=== PATIENT | female | born 1995 | race Caucasian/White ===

== ENCOUNTER 2022-08-15 00:49 | Emergency (ER) | payer OTHER ==
[~2022-08-15] VITALS: Ht 147.3 cm; Wt 45.4 kg
[2022-08-15] MEDS ORDERED: Tessalon200 MG PO (01:16)
[2022-08-15] MEDS ORDERED: ALBU90OI INH (01:16)
[2022-08-15] MEDS ORDERED: AZIT250 PO (01:17)
== END 2022-08-15 02:04 | disposition left against medical advice (07) ==
LOC: ER 00:49
DX: J06.9 Acute upper respiratory infection, unspecified (principal); Z79.899 Other long term (current) drug therapy; Z53.29 Procedure and treatment not carried out because of patient's decision for other reasons
CPT/HCPCS: 99282

== ENCOUNTER → 2024-02-07 | Outpatient (CLI) | payer OTHER ==
[~2024-02-07] MED LIST: ALBU90OI INH; AZIT250 PO; Tessalon200 MG PO
[2024-02-07 12:37] LABS: Source, Urine Clean Catch
[2024-02-07 13:26] LABS: Appearance, Urine Hazy (Clear); Bilirubin, Urine Neg (Neg); Blood, Urine 1+ (Neg); Color, Urine Yellow (P-Yellow); Glucose Qualitative, Urine 3+ (Neg); Ketones, Urine Neg (Neg); Leukocyte Esterase, Urine Neg (Neg); Nitrite, Urine Neg (Neg); Protein, Urine 1+ (Neg); Urobilinogen, Urine NORM (Normal)
[2024-02-07 14:00] LABS: Bacteria Many /hpf; Hyaline Casts 0-2 /lpf (0-2); Mucus Heavy (0-Heavy); Squamous Epithelial Cells Many /hpf (Few); White Blood Cells, Urine 0-2 /hpf (0-5)
[2024-02-07 14:19] LABS: BASOPHILS ABSOLUTE AUTO 0.05 K/mm3 (0.00-0.23); BASOPHILS PERCENT AUTO 1 % (0-2); EOSINOPHILS ABSOLUTE AUTO 0.03 K/mm3 (0.00-0.68); EOSINOPHILS PERCENT AUTO 0 % (0-6); Hematocrit 39.5 % (33.0-51.0); Hemoglobin 13.4 g/dL (11.5-16.0); IMMATURE GRAN ABSOLUTE AUTO 0.04 K/mm3 (0.00-0.10); IMMATURE GRAN PERCENT AUTO 0 % (0-1); LYMPHOCYTES ABSOLUTE AUTO 1.47 K/mm3 (0.84-5.20); LYMPHOCYTES PERCENT AUTO 15 % (21-46); MONOCYTES ABSOLUTE AUTO 0.75 K/mm3 (0.16-1.47); MONOCYTES PERCENT AUTO 8 % (4-13); Mean Corpuscular HGB 30.5 pg (26.0-34.0); Mean Corpuscular HGB Conc 33.9 g/dL (31.5-36.5); Mean Corpuscular Volume 90 fL (80-100); Mean Platelet Volume 10.8 fL (9.1-12.4); NEUTROPHILS ABSOLUTE AUTO 7.38 K/mm3 (1.96-9.15); NEUTROPHILS PERCENT AUTO 76 % (41-73); Platelet Count 304 K/mm3 (150-400); RDW Coefficient Variation 11.9 % (11.7-14.2); RDW Standard Deviation 39.1 fL (35.1-46.3); White Blood Cell Count 9.72 K/mm3 (4.00-11.30)
[2024-02-09 07:18] LABS: HEPATITIS B SURFACE ANTIGEN Negative (Negative)
[2024-02-09 07:29] LABS: HIV 1,2 COMBO ANTIGEN/ANTIBODY Negative (Negative)
[2024-02-09 10:16] LABS: HEPATITIS C AB CIA INTERP Negative (Negative); HEPATITIS C ANTIBODY CIA INDEX 0.08 IV
== END | disposition home or self-care (01) ==
LOC: LAB SHORT 12:34 → LAB 12:34
PROVIDERS: Registered Nurse Community Health
DX: Z34.91 Encounter for supervision of normal pregnancy, unspecified, first trimester (principal)
CPT/HCPCS: 81001; 84443; 86803; 87086; 87340; 87389

== ENCOUNTER → 2024-06-26 | Outpatient (CLI) | payer OTHER ==
[2024-06-26 16:07] LABS: Hematocrit 29.8 % (33.0-51.0)
== END ==
LOC: LAB SHORT 14:58 → LAB 14:58
PROVIDERS: Registered Nurse Community Health
DX: Z34.93 Encounter for supervision of normal pregnancy, unspecified, third trimester (principal)
CPT/HCPCS: 82950; 85014; 85018

== ENCOUNTER 2024-09-10 13:37 | Inpatient (IN) | payer OTHER ==
[~2024-09-10] VITALS: Ht 149.9 cm; Wt 64.0 kg
[2024-09-10] VITALS (26 sets, daily range): BP systolic 121–164; BP diastolic 59–97
[2024-09-10] MEDS ORDERED: PRENATAL 19 TA1 EAC3 PO (14:47)
[2024-09-10] MEDS ORDERED: FERSU300 PO (14:47)
[2024-09-10] MEDS ORDERED: Tranexamic Acid 1,000 MG in NS 100 ML IV SCH (14:50)
[2024-09-10] MEDS ORDERED: Misoprostol 200 MCG Tab BC PRN (14:50)
[2024-09-10] MEDS ORDERED: Acetaminophen 500 MG Tab PO PRN (14:50)
[2024-09-10] MEDS ORDERED: Ondansetron HCl 2 MG / ML 2ML Vial IV PRN (14:50)
[2024-09-10] MEDS ORDERED: Methylergonovine Maleate 0.2MG / ML 1ML Amp IM PRN (14:50)
[2024-09-10] MEDS ORDERED: OXYTOCIN/RINGER'S LACTATE 500 ML IV PRN (14:50)
[2024-09-10] MEDS ORDERED: Calcium Carbonate 500 MG Tab Chew PO SCH (14:50)
[2024-09-10] MEDS ORDERED: Lactated Ringer's 1,000 ML IV PRN (14:50)
[2024-09-10] MEDS ORDERED: Lactated Ringer's 1,000 ML IV SCH ×3 (14:50→23:50)
[2024-09-10] MEDS ORDERED: FentaNYL 2mcg/ml-Bup 0.1% Epd 250 ML EPI PRN (14:50)
[2024-09-10] MEDS ORDERED: Carboprost Tromethamine 250 MCG/ML 1ML Amp IM PRN (14:50)
[2024-09-10] MEDS ORDERED: Oxytocin 10 Unit / ML Vial IM PRN (14:50)
[2024-09-10] MEDS ORDERED: ePHEDrine Sulfate 50 MG/ML 1ML Injection XX PRN (14:50)
[2024-09-10] MEDS ORDERED: Misoprostol 200 MCG Tab PR PRN (14:50)
[2024-09-10 15:03] LABS: BASOPHILS ABSOLUTE AUTO 0.03 K/mm3 (0.00-0.23); BASOPHILS PERCENT AUTO 0 % (0-2); EOSINOPHILS ABSOLUTE AUTO 0.01 K/mm3 (0.00-0.68); EOSINOPHILS PERCENT AUTO 0 % (0-6); Hematocrit 36.4 % (33.0-51.0); Hemoglobin 12.8 g/dL (11.5-16.0); IMMATURE GRAN ABSOLUTE AUTO 0.07 K/mm3 (0.00-0.10); IMMATURE GRAN PERCENT AUTO 1 % (0-1); LYMPHOCYTES PERCENT AUTO 6 % (21-46); MONOCYTES ABSOLUTE AUTO 0.73 K/mm3 (0.16-1.47); MONOCYTES PERCENT AUTO 5 % (4-13); Mean Corpuscular HGB 31.5 pg (26.0-34.0); Mean Corpuscular HGB Conc 35.2 g/dL (31.5-36.5); Mean Corpuscular Volume 90 fL (80-100); Mean Platelet Volume 12.5 fL (9.1-12.4); NEUTROPHILS ABSOLUTE AUTO 13.18 K/mm3 (1.96-9.15); NEUTROPHILS PERCENT AUTO 88 % (41-73); Platelet Count 209 K/mm3 (150-400); RDW Coefficient Variation 12.8 % (11.7-14.2); RDW Standard Deviation 41.9 fL (35.1-46.3); Red Blood Cell Count 4.06 M/mm3 (3.80-5.20); White Blood Cell Count 14.92 K/mm3 (4.00-11.30)
[2024-09-10] MEDS ORDERED: Acetaminophen 325 MG TABLET PO PRN (23:45)
[2024-09-10] MEDS ORDERED: Docusate Sodium 100 MG Cap PO PRN (23:45)
[2024-09-10] MEDS ORDERED: FLU VACC TS2024-25(6MOS UP)/PF 45 MCG/0.5 ML SYRINGE IM ONE (23:45)
[2024-09-10] MEDS ORDERED: Lanolin Cream TOP PRN (23:45)
[2024-09-10] MEDS ORDERED: Witch Hazel/Glycerin PADS TOP PRN (23:45)
[2024-09-10] MEDS ORDERED: Measles/Mumps/Rubella Vaccine 0.5 ML Vial SC ONE (23:45)
[2024-09-10] MEDS ORDERED: Benzocaine/Benzethon Topical Anesthetic Spray 78GM TOP PRN (23:45)
[2024-09-10] MEDS ORDERED: Ketorolac Tromethamine 30mg Vial IV PRN (23:50)
[2024-09-10] MEDS ORDERED: Hydrocortisone/Pramoxine Rectal Foam 10 GM PR PRN (23:50)
[2024-09-10] MEDS ORDERED: Ibuprofen 400 MG Tab PO PRN (23:50)
[2024-09-10] MEDS ORDERED: OxyCODONE 10/Acetamin 325 TABLET PO PRN (23:50)
[2024-09-11] VITALS (14 sets, daily range): BP systolic 115–161; BP diastolic 59–85
[2024-09-11 05:44] LABS: BASOPHILS ABSOLUTE AUTO 0.02 K/mm3 (0.00-0.23); BASOPHILS PERCENT AUTO 0 % (0-2); EOSINOPHILS PERCENT AUTO 0 % (0-6); Hematocrit 32.6 % (33.0-51.0); Hemoglobin 11.4 g/dL (11.5-16.0); IMMATURE GRAN ABSOLUTE AUTO 0.08 K/mm3 (0.00-0.10); IMMATURE GRAN PERCENT AUTO 1 % (0-1); LYMPHOCYTES ABSOLUTE AUTO 1.37 K/mm3 (0.84-5.20); LYMPHOCYTES PERCENT AUTO 8 % (21-46); MONOCYTES ABSOLUTE AUTO 1.29 K/mm3 (0.16-1.47); MONOCYTES PERCENT AUTO 8 % (4-13); Mean Corpuscular HGB 31.8 pg (26.0-34.0); Mean Corpuscular Volume 91 fL (80-100); NEUTROPHILS ABSOLUTE AUTO 14.08 K/mm3 (1.96-9.15); NEUTROPHILS PERCENT AUTO 84 % (41-73); Platelet Count 164 K/mm3 (150-400); RDW Coefficient Variation 12.9 % (11.7-14.2); RDW Standard Deviation 42.9 fL (35.1-46.3); Red Blood Cell Count 3.58 M/mm3 (3.80-5.20); White Blood Cell Count 16.84 K/mm3 (4.00-11.30)
[2024-09-11] MEDS ORDERED: Prenatal Vit/FE Fumarate/FA 1 Tab PO SCH (09:00)
[2024-09-12 04:45] VITALS: BP 144/79
[2024-09-12 07:52] VITALS: BP 126/80
[2024-09-12] MEDS ORDERED: IBUP800 PO (09:00)
[2024-09-12] MEDS ORDERED: DIBUCAINE TOP PRN (10:25)
[2024-09-12 10:55] VITALS: BP 164/73
[2024-09-12 11:04] VITALS: BP 139/74
== END 2024-09-12 11:30 | disposition home or self-care (01) | DRG 807 ==
LOC: BC 13:37 → OBS 13:37 → BC 14:16
PROVIDERS: ADMIT Family Medicine
PROC: 10907ZC Drainage of Amniotic Fluid, Therapeutic from Products of Conception, Via Natural or Artificial Opening (ICD-10-PCS; principal; 2024-09-11)
PROC: 0HQ9XZZ Repair Perineum Skin, External Approach (ICD-10-PCS; principal; 2024-09-11)
PROC: 10E0XZZ Delivery of Products of Conception, External Approach (ICD-10-PCS; principal; 2024-09-11)
DX: O35.EXX0 Maternal care for other (suspected) fetal abnormality and damage, fetal genitourinary anomalies, not applicable or unspecified (principal); Z37.0 Single live birth; O69.81X0 Labor and delivery complicated by cord around neck, without compression, not applicable or unspecified; Z3A.39 39 weeks gestation of pregnancy; Z78.9 Other specified health status; O70.0 First degree perineal laceration during delivery
CPT/HCPCS: 36415; 51702; 59025; 85025; 86850; 86900; 86901; 99214; A9270; J1885; J2405; J2590; J7120